=== PATIENT | male | born 1980 | race Caucasian/White ===

== ENCOUNTER 2018-01-16 04:42 | Emergency (ER) | payer OTHER ==
[~2018-01-16] VITALS: Ht 177.8 cm; Wt 84.3 kg
[~2018-01-16 04:42] MED LIST: CARAFATE100 MG/ML PO; CODEINE SULFATE30 MG PO; DICYCLOMINE HCL20 MG PO; IBUPROFEN800 MG PO; MOTRIN600 MG PO; VICODIN 5-3001 EACH PO; ZOFRAN ODT4 MG PO
[2018-01-16 05:36] LABS: HEMATOCRIT 41.2 % (38.0-50.0); HEMOGLOBIN 14.2 G/DL (12.5-16.6); MCH 29.7 PG (29.0-34.0); MCHC 34.5 G/DL (30.0-36.0); MCV 86.2 FL (86-99); PLATELET COUNT 252 K/uL (156-360); RBC DIS.WIDTH-SD 41.1 % (39-53); RED BLOOD COUNT 4.78 M/uL (4.00-5.50); WHITE BLOOD COUNT 8.3 K/uL (4.1-10.2)
[2018-01-16 05:44] LABS: D-DIMER ELISA < 150.00 ng/mLDDU (<230)
[2018-01-16 05:47] LABS: ALBUMIN 4.5 g/dL (3.2-4.8)
[2018-01-16 05:48] LABS: CHLORIDE 104 mEq/L (99-109); POTASSIUM 4.3 mEq/L (3.7-5.4); SODIUM 141 mEq/L (136-147)
[2018-01-16 05:50] LABS: GLUCOSE 106 mg/dL (70-99)
[2018-01-16 05:52] LABS: TOTAL BILIRUBIN 0.3 mg/dL (0.0-1.0)
[2018-01-16 05:53] LABS: ALKALINE PHOSPHATASE 58 IU/L (3-129)
[2018-01-16 05:54] LABS: CREATININE 0.8 mg/dL (0.6-1.3); GFR ESTIMATE (CALCULATED) > 59 mL/min/ (58.99-99999)
[2018-01-16 05:55] LABS: AST (GOT) 24 IU/L (2-34); UREA NITROGEN (BUN) 18 mg/dL (9-23)
[2018-01-16 05:57] LABS: ALT (GPT) 22 IU/L (3-49); LIPASE 29 U/L (1.0-51.0)
[2018-01-16 06:03] LABS: TROP-I INTERPRETATION NEGATIVE; TROPONIN-I < 0.01 ng/mL (0.0-0.30)
[2018-01-16 07:19] VITALS: BP 127/89
== END 2018-01-16 07:21 | disposition home or self-care (01) ==
LOC: EME 04:42
PROVIDERS: Emergency Medicine
DX: R10.11 Right upper quadrant pain (principal)
CPT/HCPCS: 71046; 76705; 80053; 83690; 84484; 85027; 85379; 93005; 99281; 99285